=== PATIENT | female | born 1940 | race Caucasian/White ===

== ENCOUNTER 2020-02-08 17:34 | Inpatient (IN) ==
[2020-02-08] MEDS ORDERED: Ondansetron ODT 4 MG TAB.RAPDIS SL PRN (20:43)
[2020-02-08] MEDS ORDERED: Naloxone 0.4 MG/ML INJ IVP PRN (20:43)
[2020-02-08 21:52] LABS: Immature Granulocytes % 0.4 % (0-4); Mean Corpuscular Volume 87.4 fL (83.0-100.0); Red Cell Distribution Width 13.1 % (11.5-14.5)
[2020-02-08 21:54] LABS: Eosinophils % 0.4 %; Hematocrit 41.7 % (35.3-44.9); Hemoglobin 12.9 g/dL (11.5-15.4); Immature Platelets 4.8 % (1.1-6.1); Lymphocytes # 0.2 K/mcL (0.6-4.6); Lymphocytes % 7.7 %; Mean Corpuscular HGB Conc 30.9 g/dL (31.6-35.5); Mean Platelet Volume 11.5 fL (9.4-12.4); Monocytes # 0.1 K/mcL (0.0-1.3); Monocytes % 2.2 %; Neutrophils # 2.4 K/mcL (1.6-8.9); Platelet Count 109 K/mcL (140-400); Red Blood Count 4.77 M/mcL (3.82-4.97); Segmented Neutrophils % 89.3 %; White Blood Count 2.7 K/mcL (4.3-11.1)
[2020-02-08 22:15] LABS: Albumin 3.8 g/dL (3.5-5.7); Albumin/Globulin Ratio 1.2 (1.1-2.2); Bilirubin,Total 0.5 mg/dL (0.3-1.0); Calcium 8.4 mg/dL (8.6-10.3); Globulin 3.1 g/dL (2.4-3.5); Potassium 3.8 mEq/L (3.5-5.1); Total Protein 6.9 g/dL (6.4-8.9)
[2020-02-08] MEDS: Dexamethasone 4 MG/ML VIAL IVP SCH (23:51)
[2020-02-09 07:07] LABS: Hematocrit 43.2 % (35.3-44.9); Hemoglobin 13.4 g/dL (11.5-15.4); Immature Platelets 5.6 % (1.1-6.1); Mean Corpuscular Hemoglobin 27.1 pg (28.0-33.3); Mean Corpuscular Volume 87.3 fL (83.0-100.0); Mean Platelet Volume 11.3 fL (9.4-12.4); Red Blood Count 4.95 M/mcL (3.82-4.97); Red Cell Distribution Width 13.1 % (11.5-14.5); White Blood Count 2.5 K/mcL (4.3-11.1)
[2020-02-09 07:14] LABS: Prothrombin Time 11.9 Seconds (9.4-12.1)
[2020-02-09 07:30] LABS: Phosphorous 3.6 mg/dL (2.7-4.5)
[2020-02-09 07:39] LABS: Thyroid Stimulating Hormone 0.354 mcIU/mL (0.340-5.600)
[2020-02-09] MEDS ORDERED: Ipratropium/Albuterol Neb 3 ML IH SCH (08:00)
[2020-02-09] MEDS ORDERED: Famotidine 20 MG TABLET PO SCH (09:00)
[2020-02-09] MEDS: amLODIPine 5 MG TABLET PO SCH (09:01)
[2020-02-09] MEDS: Dexamethasone 4 MG/ML VIAL IVP SCH (09:01)
[2020-02-09] MEDS: Folic Acid 1 MG TABLET PO SCH (09:01)
[2020-02-09] MEDS: Azithromycin 500 MG in 0.9 % Sodium Chloride 250 ML IVPB SCH (09:02)
[2020-02-09] MEDS: Ipratropium 1 PUFF INHALER IH SCH ×4 (11:55→23:35)
[2020-02-09] MEDS: QUEtiapine Fumarate 25 MG TABLET PO SCH (21:46)
[2020-02-09] MEDS: Acetaminophen 325 MG TABLET PO PRN (21:46)
[2020-02-10] MEDS: Ipratropium 1 PUFF INHALER IH SCH ×6 (03:58→23:29)
[2020-02-10] MEDS: Budesonide/Formoterol 80/4.5 1 PUFF INH IH SCH ×2 (07:20→19:55)
[2020-02-10] MEDS ORDERED: NON-FORMULARY MEDICATION 1 EACH EACH (Umeclidinium Bromide [Incruse Ellipta] 1 PUFF) IH SCH (09:00)
[2020-02-10] MEDS: Azithromycin 500 MG in 0.9 % Sodium Chloride 250 ML IVPB SCH (10:30)
[2020-02-10] MEDS: Folic Acid 1 MG TABLET PO SCH (10:31)
[2020-02-10] MEDS: amLODIPine 5 MG TABLET PO SCH (10:31)
[2020-02-10] MEDS: Famotidine 20 MG TABLET PO SCH (10:31)
[2020-02-10] MEDS: Dexamethasone 4 MG/ML VIAL IVP SCH (10:31)
[2020-02-10 12:00] LABS: Basophils % 0.1 %; Immature Granulocytes % 0.3 % (0-4)
[2020-02-10 12:02] LABS: Hematocrit 44.8 % (35.3-44.9); Hemoglobin 14.2 g/dL (11.5-15.4); Immature Platelets 5.1 % (1.1-6.1); Lymphocytes # 0.4 K/mcL (0.6-4.6); Mean Corpuscular HGB Conc 31.7 g/dL (31.6-35.5); Mean Corpuscular Hemoglobin 27.7 pg (28.0-33.3); Mean Corpuscular Volume 87.3 fL (83.0-100.0); Mean Platelet Volume 11.3 fL (9.4-12.4); Monocytes # 0.5 K/mcL (0.0-1.3); Monocytes % 6.7 %; Neutrophils # 6.3 K/mcL (1.6-8.9); Platelet Count 133 K/mcL (140-400); Red Blood Count 5.13 M/mcL (3.82-4.97); Segmented Neutrophils % 87.9 %; White Blood Count 7.2 K/mcL (4.3-11.1)
[2020-02-10 12:16] LABS: Albumin 3.8 g/dL (3.5-5.7); Albumin/Globulin Ratio 1.2 (1.1-2.2); Bilirubin,Total 0.4 mg/dL (0.3-1.0); Calcium 8.9 mg/dL (8.6-10.3); Globulin 3.2 g/dL (2.4-3.5); Potassium 3.6 mEq/L (3.5-5.1)
[2020-02-10] MEDS: cefTRIAXone 1,000 MG in Water for inj. (sterile) 10 ML IVP SCH (16:20)
[2020-02-10] MEDS ORDERED: Furosemide 40 MG/4 ML VIAL IVP ONE ×2 (16:55→17:05)
[2020-02-10] MEDS ORDERED: Isovue-370 500 ML BOTTLE IVP ONE (16:56)
[2020-02-10] MEDS ORDERED: *HR* Heparin 5,000 UNIT/ML VIAL IVP PRN ×2 (17:06)
[2020-02-10] MEDS ORDERED: *HR* Heparin 5,000 UNIT/ML VIAL IVP ONE (17:06)
[2020-02-10 17:42] LABS: ABG Base Excess 2 mEq/L (-2 to 3); ABG HCO3 25 mEq/L (21-27); ABG Oxygen Saturation 86 % (95-98); ABG PCO2 34 mmHg (35-45); ABG PH 7.48 pH Units (7.32-7.45); ABG PO2 48 mmHg (85-104); ABG TCO2 26 mEq/L (20-26)
[2020-02-10] MEDS ORDERED: *HR* Heparin 5,000 UNIT/ML VIAL SQ SCH (18:00)
[2020-02-10 18:15] LABS: Mean Corpuscular HGB Conc 30.6 g/dL (31.6-35.5); Mean Corpuscular Hemoglobin 26.7 pg (28.0-33.3); Red Cell Distribution Width 13.1 % (11.5-14.5)
[2020-02-10 18:16] LABS: Hematocrit 45.1 % (35.3-44.9); Hemoglobin 13.8 g/dL (11.5-15.4); Immature Platelets 6.5 % (1.1-6.1); Mean Corpuscular Volume 87.2 fL (83.0-100.0); Mean Platelet Volume 11.3 fL (9.4-12.4); Red Blood Count 5.17 M/mcL (3.82-4.97); White Blood Count 6.1 K/mcL (4.3-11.1)
[2020-02-10] MEDS: Heparin 25,000UNIT/250ML 1/2NS 25,000 UNIT/250 ML IV.SOLN IVC SCH (18:17)
[2020-02-10 18:20] LABS: Prothrombin Time 11.7 Seconds (9.4-12.1)
[2020-02-10 18:22] LABS: Heparin anti-factor XA UFH 0.04 IU/mL (0.30-0.70)
[2020-02-10] MEDS: Acetaminophen 325 MG TABLET PO PRN (20:31)
[2020-02-10] MEDS: QUEtiapine Fumarate 25 MG TABLET PO SCH (20:31)
[2020-02-10] MEDS ORDERED: 0.9 % Sodium Chloride 250 ML ONE (22:58)
[2020-02-11 03:20] LABS: Basophils % 0.2 %; Hematocrit 37.8 % (35.3-44.9); Hemoglobin 11.8 g/dL (11.5-15.4); Immature Granulocytes % 0.3 % (0-4); Immature Platelets 6.9 % (1.1-6.1); Lymphocytes # 0.3 K/mcL (0.6-4.6); Lymphocytes % 4.3 %; Mean Corpuscular HGB Conc 31.2 g/dL (31.6-35.5); Mean Corpuscular Hemoglobin 26.9 pg (28.0-33.3); Mean Corpuscular Volume 86.1 fL (83.0-100.0); Mean Platelet Volume 11.5 fL (9.4-12.4); Monocytes # 0.4 K/mcL (0.0-1.3); Monocytes % 6.2 %; Neutrophils # 5.2 K/mcL (1.6-8.9); Platelet Count 113 K/mcL (140-400); Red Blood Count 4.39 M/mcL (3.82-4.97); White Blood Count 5.8 K/mcL (4.3-11.1)
[2020-02-11 03:34] LABS: Albumin 3.6 g/dL (3.5-5.7); Albumin/Globulin Ratio 1.2 (1.1-2.2); Bilirubin,Total 0.4 mg/dL (0.3-1.0); Calcium 8.5 mg/dL (8.6-10.3); Globulin 2.9 g/dL (2.4-3.5); Potassium 3.5 mEq/L (3.5-5.1); Total Protein 6.5 g/dL (6.4-8.9)
[2020-02-11] MEDS: Ipratropium 1 PUFF INHALER IH SCH ×6 (03:56→23:57)
[2020-02-11] MEDS: Budesonide/Formoterol 80/4.5 1 PUFF INH IH SCH ×2 (08:05→20:20)
[2020-02-11] MEDS: Folic Acid 1 MG TABLET PO SCH (10:18)
[2020-02-11] MEDS: amLODIPine 5 MG TABLET PO SCH (10:18)
[2020-02-11] MEDS: Dexamethasone 4 MG/ML VIAL IVP SCH (10:18)
[2020-02-11] MEDS: Famotidine 20 MG TABLET PO SCH (10:18)
[2020-02-11] MEDS: cefTRIAXone 1,000 MG in Water for inj. (sterile) 10 ML IVP SCH (10:19)
[2020-02-11] MEDS: Pantoprazole 40 MG VIAL IVP SCH (10:21)
[2020-02-11] MEDS: Heparin 25,000UNIT/250ML 1/2NS 25,000 UNIT/250 ML IV.SOLN IVC SCH (17:39)
[2020-02-11] MEDS: QUEtiapine Fumarate 25 MG TABLET PO SCH (19:57)
[2020-02-12] MEDS: Ipratropium 1 PUFF INHALER IH SCH ×6 (04:03→23:12)
[2020-02-12 05:17] LABS: Basophils % 0.2 %; INR 1.1; Prothrombin Time 12.2 Seconds (9.4-12.1)
[2020-02-12 05:18] LABS: Heparin anti-factor XA UFH 0.63 IU/mL (0.30-0.70)
[2020-02-12 05:19] LABS: Hematocrit 37.9 % (35.3-44.9); Immature Granulocytes % 1.4 % (0-4); Immature Platelets 7.2 % (1.1-6.1); Lymphocytes # 0.3 K/mcL (0.6-4.6); Lymphocytes % 5.5 %; Mean Corpuscular HGB Conc 31.7 g/dL (31.6-35.5); Mean Corpuscular Hemoglobin 27.2 pg (28.0-33.3); Mean Corpuscular Volume 85.9 fL (83.0-100.0); Mean Platelet Volume 11.9 fL (9.4-12.4); Monocytes # 0.4 K/mcL (0.0-1.3); Monocytes % 6.8 %; Neutrophils # 4.8 K/mcL (1.6-8.9); Platelet Count 124 K/mcL (140-400); Red Blood Count 4.41 M/mcL (3.82-4.97); Red Cell Distribution Width 13.1 % (11.5-14.5); Segmented Neutrophils % 86.1 %; White Blood Count 5.6 K/mcL (4.3-11.1)
[2020-02-12 05:34] LABS: Alanine Aminotransferase 9 Units/L (7-52); Albumin 3.5 g/dL (3.5-5.7); Albumin/Globulin Ratio 1.2 (1.1-2.2); Alkaline Phosphatase 54 Units/L (34-104); Aspartate Amino Transferase 19 Units/L (13-39); BUN/Creatinine Ratio 30 (6-26); Bilirubin,Total 0.4 mg/dL (0.3-1.0); Blood Urea Nitrogen 31 mg/dL (8-23); Calcium 8.5 mg/dL (8.6-10.3); Carbon Dioxide 24 mEq/L (23-29); Chloride 104 mEq/L (98-107); Glucose 106 mg/dL (70-105); Osmolality,Calculated 297 (280-300); Potassium 3.5 mEq/L (3.5-5.1); Sodium 140 mEq/L (136-145); Total Protein 6.5 g/dL (6.4-8.9); eGFR For African Americans > 60 (> 60); eGFR For Non-African Americans 51 (> 60)
[2020-02-12] MEDS: Budesonide/Formoterol 80/4.5 1 PUFF INH IH SCH ×2 (07:32→20:14)
[2020-02-12] MEDS: Pantoprazole 40 MG VIAL IVP SCH (09:05)
[2020-02-12] MEDS: Dexamethasone 4 MG/ML VIAL IVP SCH (09:06)
[2020-02-12] MEDS: Famotidine 20 MG TABLET PO SCH (09:08)
[2020-02-12] MEDS: Folic Acid 1 MG TABLET PO SCH (09:08)
[2020-02-12] MEDS: cefTRIAXone 1,000 MG in Water for inj. (sterile) 10 ML IVP SCH (09:08)
[2020-02-12] MEDS: amLODIPine 5 MG TABLET PO SCH (09:08)
[2020-02-12] MEDS: Furosemide 20 MG/2 ML VIAL IVP SCH (09:14)
[2020-02-12] MEDS ORDERED: Heparin 25,000UNIT/250ML 1/2NS 25,000 UNIT/250 ML IV.SOLN IVC SCH (14:49)
[2020-02-12] MEDS ORDERED: *HR* Heparin 5,000 UNIT/ML VIAL IVP PRN ×2 (14:49)
[2020-02-12] MEDS ORDERED: Dexamethasone Sodium Phos/PF 10 MG/ML VIAL IVP ONE (15:03)
[2020-02-12] MEDS: *HR* Enoxaparin 60 MG/0.6 ML SYRINGE SQ SCH (16:55)
[2020-02-12] MEDS: QUEtiapine Fumarate 25 MG TABLET PO SCH (21:56)
[2020-02-13] MEDS: Ipratropium 1 PUFF INHALER IH SCH ×5 (03:45→19:58)
[2020-02-13 05:21] LABS: Heparin anti-factor XA UFH 0.44 IU/mL (0.30-0.70); INR 1.1; Prothrombin Time 12.9 Seconds (9.4-12.1)
[2020-02-13 05:37] LABS: Albumin 3.4 g/dL (3.5-5.7); Albumin/Globulin Ratio 1.2 (1.1-2.2); Bilirubin,Total 0.4 mg/dL (0.3-1.0); Calcium 8.5 mg/dL (8.6-10.3); Globulin 2.8 g/dL (2.4-3.5); Potassium 3.3 mEq/L (3.5-5.1); Total Protein 6.2 g/dL (6.4-8.9)
[2020-02-13] MEDS: *HR* Enoxaparin 60 MG/0.6 ML SYRINGE SQ SCH (05:54)
[2020-02-13] MEDS: Furosemide 20 MG/2 ML VIAL IVP SCH (07:56)
[2020-02-13] MEDS: amLODIPine 5 MG TABLET PO SCH (07:56)
[2020-02-13] MEDS: Folic Acid 1 MG TABLET PO SCH (07:56)
[2020-02-13] MEDS: Famotidine 20 MG TABLET PO SCH (07:56)
[2020-02-13] MEDS: cefTRIAXone 1,000 MG in Water for inj. (sterile) 10 ML IVP SCH (07:57)
[2020-02-13] MEDS: Pantoprazole 40 MG VIAL IVP SCH (07:57)
[2020-02-13] MEDS: Dexamethasone Sodium Phos/PF 10 MG/ML VIAL IVP SCH (07:57)
[2020-02-13] MEDS: Budesonide/Formoterol 80/4.5 1 PUFF INH IH SCH ×2 (08:05→19:59)
[2020-02-13] MEDS: QUEtiapine Fumarate 25 MG TABLET PO SCH (20:06)
[2020-02-13] MEDS: Acetaminophen 325 MG TABLET PO PRN (20:06)
[2020-02-14] MEDS: Ipratropium 1 PUFF INHALER IH SCH ×6 (00:33→19:44)
[2020-02-14] MEDS: *HR* Enoxaparin 30 MG/0.3 ML SYRINGE SQ SCH (04:52)
[2020-02-14 07:22] LABS: INR 1.3
[2020-02-14 07:30] LABS: Alanine Aminotransferase 8 Units/L (7-52); Albumin 3.4 g/dL (3.5-5.7); Albumin/Globulin Ratio 1.2 (1.1-2.2); Alkaline Phosphatase 51 Units/L (34-104); Aspartate Amino Transferase 13 Units/L (13-39); BUN/Creatinine Ratio 36 (6-26); Bilirubin,Total 0.5 mg/dL (0.3-1.0); Blood Urea Nitrogen 38 mg/dL (8-23); Calcium 8.6 mg/dL (8.6-10.3); Carbon Dioxide 26 mEq/L (23-29); Chloride 102 mEq/L (98-107); Globulin 2.9 g/dL (2.4-3.5); Glucose 144 mg/dL (70-105); Osmolality,Calculated 300 (280-300); Potassium 3.7 mEq/L (3.5-5.1); Sodium 139 mEq/L (136-145); Total Protein 6.3 g/dL (6.4-8.9); eGFR For African Americans > 60 (> 60); eGFR For Non-African Americans 50 (> 60)
[2020-02-14] MEDS: Budesonide/Formoterol 80/4.5 1 PUFF INH IH SCH ×2 (07:40→19:42)
[2020-02-14] MEDS: Furosemide 20 MG/2 ML VIAL IVP SCH (10:43)
[2020-02-14] MEDS: cefTRIAXone 1,000 MG in Water for inj. (sterile) 10 ML IVP SCH (10:43)
[2020-02-14] MEDS: amLODIPine 5 MG TABLET PO SCH (10:44)
[2020-02-14] MEDS: Famotidine 20 MG TABLET PO SCH (10:44)
[2020-02-14] MEDS: Dexamethasone Sodium Phos/PF 10 MG/ML VIAL IVP SCH (10:44)
[2020-02-14] MEDS: Folic Acid 1 MG TABLET PO SCH (10:45)
[2020-02-14] MEDS: Pantoprazole 40 MG VIAL IVP SCH (10:45)
[2020-02-14 17:46] LABS: Hematocrit 38.1 % (35.3-44.9); Hemoglobin 12.3 g/dL (11.5-15.4); Mean Corpuscular HGB Conc 32.3 g/dL (31.6-35.5); Mean Corpuscular Hemoglobin 27.2 pg (28.0-33.3); Mean Corpuscular Volume 84.3 fL (83.0-100.0); Mean Platelet Volume 10.9 fL (9.4-12.4); Platelet Count 205 K/mcL (140-400); Red Blood Count 4.52 M/mcL (3.82-4.97); Red Cell Distribution Width 13.1 % (11.5-14.5); White Blood Count 8.4 K/mcL (4.3-11.1)
[2020-02-14 18:01] LABS: Lymphocytes # 0.3 K/mcL (0.6-4.6); Monocytes # 0.3 K/mcL (0.0-1.3); Neutrophils # 7.7 K/mcL (1.6-8.9); Platelet Estimate Normal (Normal)
[2020-02-14] MEDS: QUEtiapine Fumarate 25 MG TABLET PO SCH (19:55)
[2020-02-14] MEDS: Acetaminophen 325 MG TABLET PO PRN (21:17)
[2020-02-15] MEDS: Ipratropium 1 PUFF INHALER IH SCH ×7 (00:59→23:56)
[2020-02-15] MEDS: *HR* Enoxaparin 30 MG/0.3 ML SYRINGE SQ SCH (05:10)
[2020-02-15 05:55] LABS: Basophils % 0.8 %; Hematocrit 39.6 % (35.3-44.9); Hemoglobin 12.7 g/dL (11.5-15.4); Immature Granulocytes % 5.3 % (0-4); Lymphocytes # 0.3 K/mcL (0.6-4.6); Lymphocytes % 5.3 %; Mean Corpuscular HGB Conc 32.1 g/dL (31.6-35.5); Mean Corpuscular Hemoglobin 27.2 pg (28.0-33.3); Mean Corpuscular Volume 84.8 fL (83.0-100.0); Mean Platelet Volume 11.7 fL (9.4-12.4); Monocytes # 0.2 K/mcL (0.0-1.3); Monocytes % 4.1 %; Platelet Count 200 K/mcL (140-400); Red Blood Count 4.67 M/mcL (3.82-4.97); Segmented Neutrophils % 84.5 %; White Blood Count 4.9 K/mcL (4.3-11.1)
[2020-02-15 06:00] LABS: Neutrophils # 4.1 K/mcL (1.6-8.9)
[2020-02-15 06:01] LABS: INR 1.2; Prothrombin Time 13.6 Seconds (9.4-12.1)
[2020-02-15 06:15] LABS: Albumin 3.8 g/dL (3.5-5.7); Albumin/Globulin Ratio 1.3 (1.1-2.2); Bilirubin,Total 0.5 mg/dL (0.3-1.0); Calcium 9.1 mg/dL (8.6-10.3); Potassium 4.3 mEq/L (3.5-5.1); Total Protein 6.8 g/dL (6.4-8.9)
[2020-02-15 06:35] LABS: Platelet Estimate Normal (Normal)
[2020-02-15] MEDS: Budesonide/Formoterol 80/4.5 1 PUFF INH IH SCH ×2 (08:48→19:45)
[2020-02-15] MEDS: cefTRIAXone 1,000 MG in Water for inj. (sterile) 10 ML IVP SCH (09:51)
[2020-02-15] MEDS: Furosemide 20 MG/2 ML VIAL IVP SCH (09:53)
[2020-02-15] MEDS: amLODIPine 5 MG TABLET PO SCH (09:53)
[2020-02-15] MEDS: Folic Acid 1 MG TABLET PO SCH (09:53)
[2020-02-15] MEDS: Dexamethasone Sodium Phos/PF 10 MG/ML VIAL IVP SCH (09:54)
[2020-02-15] MEDS: QUEtiapine Fumarate 25 MG TABLET PO SCH (20:37)
[2020-02-16 02:40] LABS: Albumin 3.4 g/dL (3.5-5.7); Albumin/Globulin Ratio 1.2 (1.1-2.2); Bilirubin,Total 0.4 mg/dL (0.3-1.0); Calcium 8.8 mg/dL (8.6-10.3); Globulin 2.8 g/dL (2.4-3.5); Potassium 4.4 mEq/L (3.5-5.1); Total Protein 6.2 g/dL (6.4-8.9)
[2020-02-16] MEDS: Ipratropium 1 PUFF INHALER IH SCH ×6 (03:28→23:15)
[2020-02-16] MEDS: *HR* Enoxaparin 30 MG/0.3 ML SYRINGE SQ SCH (05:22)
[2020-02-16 08:16] LABS: INR 1.1; Prothrombin Time 13.2 Seconds (9.4-12.1)
[2020-02-16] MEDS: Budesonide/Formoterol 80/4.5 1 PUFF INH IH SCH ×2 (08:55→19:54)
[2020-02-16] MEDS: amLODIPine 5 MG TABLET PO SCH (09:38)
[2020-02-16] MEDS: Folic Acid 1 MG TABLET PO SCH (09:38)
[2020-02-16] MEDS: Furosemide 20 MG/2 ML VIAL IVP SCH (10:24)
[2020-02-16] MEDS: Dexamethasone Sodium Phos/PF 10 MG/ML VIAL IVP SCH (10:25)
[2020-02-16] MEDS: QUEtiapine Fumarate 25 MG TABLET PO SCH (20:23)
[2020-02-17] MEDS: Ipratropium 1 PUFF INHALER IH SCH ×6 (03:28→23:25)
[2020-02-17] MEDS: *HR* Enoxaparin 30 MG/0.3 ML SYRINGE SQ SCH (05:35)
[2020-02-17] MEDS: Budesonide/Formoterol 80/4.5 1 PUFF INH IH SCH ×2 (07:35→19:52)
[2020-02-17] MEDS: Folic Acid 1 MG TABLET PO SCH (07:42)
[2020-02-17] MEDS: amLODIPine 5 MG TABLET PO SCH (07:42)
[2020-02-17] MEDS: Dexamethasone 4 MG/ML VIAL IVP SCH (07:43)
[2020-02-17] MEDS: QUEtiapine Fumarate 25 MG TABLET PO SCH (20:17)
[2020-02-18] MEDS: Ipratropium 1 PUFF INHALER IH SCH ×4 (03:30→15:35)
[2020-02-18 04:16] VITALS: BP 126/65
[2020-02-18] MEDS: *HR* Enoxaparin 30 MG/0.3 ML SYRINGE SQ SCH (05:26)
[2020-02-18] MEDS: Budesonide/Formoterol 80/4.5 1 PUFF INH IH SCH (07:37)
[2020-02-18] MEDS: Dexamethasone 4 MG/ML VIAL IVP SCH (10:50)
[2020-02-18] MEDS: amLODIPine 5 MG TABLET PO SCH (10:50)
[2020-02-18] MEDS: Folic Acid 1 MG TABLET PO SCH (10:51)
== END 2020-02-18 17:45 | DRG 177 ==
LOC: 2NENU → SUATTDRO 20:25 → 2NENU 02-14 06:29
PROVIDERS: ADMIT Student in an Organized Health Care Education/Training Program; ATTEND Internal Medicine

== ENCOUNTER 2020-03-02 19:59 | Inpatient (IN) ==
[2020-03-03] MEDS ORDERED: Acetaminophen 325 MG TABLET PO PRN (01:04)
[2020-03-03] MEDS ORDERED: Naloxone 0.4 MG/ML INJ IVP PRN (01:04)
[2020-03-03] MEDS ORDERED: Ondansetron 4 MG/2 ML VIAL IVP PRN (01:04)
[2020-03-03 06:58] LABS: INR 1.1; Prothrombin Time 13.1 Seconds (9.4-12.1)
[2020-03-03 06:59] LABS: Activated Partial Thrombo Time 29.3 Seconds (26.0-36.0)
[2020-03-03 07:14] LABS: C-Reactive Protein 24 mg/L (Less than 10); Creatine Kinase 18 Units/L (30-223); Lactate Dehydrogenase 179 Units/L (140-271)
[2020-03-03 07:18] LABS: Albumin 3.4 g/dL (3.5-5.7); Bilirubin,Total 0.4 mg/dL (0.3-1.0); Calcium 9.2 mg/dL (8.6-10.3); Globulin 3.5 g/dL (2.4-3.5); Magnesium 2.3 mg/dL (1.6-2.6); Phosphorous 5.7 mg/dL (2.7-4.5); Total Protein 6.9 g/dL (6.4-8.9); Troponin I 0.03 ng/mL (< 0.04)
[2020-03-03] MEDS ORDERED: Vancomycin 1 EACH in 0.9 % Sodium Chloride 250 ML IVPB PRN (08:00)
[2020-03-03] MEDS: Piperacillin/Tazobactam 3.375 GM in 0.9 % Sodium Chloride Mini Bag 100 ML IVPB SCH ×2 (08:17→19:36)
[2020-03-03] MEDS ORDERED: Dexamethasone 4 MG/ML VIAL IVP SCH (09:00)
[2020-03-03 13:29] LABS: Basophils % 0.2 %; Hematocrit 32.9 % (35.3-44.9); Hemoglobin 10.2 g/dL (11.5-15.4); Immature Granulocytes % 1.1 % (0-4); Lymphocytes # 0.3 K/mcL (0.6-4.6); Lymphocytes % 6.3 %; Mean Corpuscular Hemoglobin 27.1 pg (28.0-33.3); Mean Corpuscular Volume 87.5 fL (83.0-100.0); Mean Platelet Volume 10.7 fL (9.4-12.4); Monocytes # 0.1 K/mcL (0.0-1.3); Monocytes % 1.5 %; Neutrophils # 4.8 K/mcL (1.6-8.9); Platelet Count 207 K/mcL (140-400); Red Blood Count 3.76 M/mcL (3.82-4.97); Red Cell Distribution Width 14.2 % (11.5-14.5); Segmented Neutrophils % 90.9 %
[2020-03-03 13:44] LABS: White Blood Count 5.3 K/mcL (4.3-11.1)
[2020-03-03] MEDS: *HR* Heparin 5,000 UNIT/ML VIAL SQ SCH (19:39)
[2020-03-04] MEDS: *HR* Heparin 5,000 UNIT/ML VIAL SQ SCH ×2 (05:45→16:33)
[2020-03-04 06:30] LABS: Hematocrit 37.4 % (35.3-44.9); Hemoglobin 11.3 g/dL (11.5-15.4); Mean Corpuscular HGB Conc 30.2 g/dL (31.6-35.5); Mean Corpuscular Volume 89.5 fL (83.0-100.0); Mean Platelet Volume 10.8 fL (9.4-12.4); Platelet Count 275 K/mcL (140-400); Red Blood Count 4.18 M/mcL (3.82-4.97); Red Cell Distribution Width 14.3 % (11.5-14.5); White Blood Count 9.5 K/mcL (4.3-11.1)
[2020-03-04 06:55] LABS: Calcium 9.7 mg/dL (8.6-10.3); Magnesium 2.2 mg/dL (1.6-2.6); Potassium 4.5 mEq/L (3.5-5.1)
[2020-03-04] MEDS: Piperacillin/Tazobactam 3.375 GM in 0.9 % Sodium Chloride Mini Bag 100 ML IVPB SCH ×2 (07:52→16:33)
[2020-03-04] MEDS ORDERED: NON-FORMULARY MEDICATION 1 EACH EACH (Umeclidinium Bromide [Incruse Ellipta] 1 PUFF) IH SCH (09:00)
[2020-03-04] MEDS: amLODIPine 5 MG TABLET PO SCH (10:02)
[2020-03-04] MEDS: Lactobacillus 1 EACH CAP.SPRINK PO SCH ×2 (10:02→21:39)
[2020-03-04] MEDS: Famotidine 20 MG TABLET PO SCH (10:02)
[2020-03-04] MEDS: Ipratropium 1 PUFF INHALER IH SCH ×4 (11:53→23:33)
[2020-03-04 16:40] LABS: Adenovirus Not Detected (Not Detect); Bordetella Pertussis Not Detected (Not Detect); Chlamydophila pneumoniae Not Detected (Not Detect); Coronavirus 229E Not Detected (Not Detect); Coronavirus HKU1 Not Detected (Not Detect); Coronavirus NL63 Not Detected (Not Detect); Coronavirus OC43 Not Detected (Not Detect); Human Metapneumovirus Not Detected (Not Detect); Human Rhinovirus/Enterovirus Not Detected (Not Detect); Influenza A Subtype 2009 H1 Not Detected (Not Detect); Influenza B Not Detected (Not Detect); Mycoplasma pneumoniae Not Detected (Not Detect); Parainfluenza Virus 1 Not Detected (Not Detect); Parainfluenza Virus 2 Not Detected (Not Detect); Parainfluenza Virus 3 Not Detected (Not Detect); Parainfluenza Virus 4 Not Detected (Not Detect); Respiratory Syncytial Virus Not Detected (Not Detect); SARS-CoV-2 Not Detected (Not Detect)
[2020-03-04] MEDS ORDERED: QUEtiapine Fumarate 25 MG TABLET PO SCH (21:00)
[2020-03-05] MEDS: Piperacillin/Tazobactam 3.375 GM in 0.9 % Sodium Chloride Mini Bag 100 ML IVPB SCH ×2 (00:26→07:51)
[2020-03-05 02:51] LABS: Fibrinogen 421 mg/dL (169-393)
[2020-03-05 02:52] LABS: D-Dimer 2540 ng/mLFEU (0-500)
[2020-03-05 03:11] LABS: Calcium 8.9 mg/dL (8.6-10.3); Potassium 4.3 mEq/L (3.5-5.1)
[2020-03-05] MEDS: Ipratropium 1 PUFF INHALER IH SCH ×4 (04:05→16:19)
[2020-03-05] MEDS: *HR* Heparin 5,000 UNIT/ML VIAL SQ SCH (05:59)
[2020-03-05 07:48] LABS: Basophils % 0.4 %; Eosinophils % 0.4 %; Hemoglobin 10.1 g/dL (11.5-15.4); Immature Granulocytes % 2.2 % (0-4); Lymphocytes # 0.8 K/mcL (0.6-4.6); Lymphocytes % 16.4 %; Mean Corpuscular HGB Conc 31.6 g/dL (31.6-35.5); Mean Corpuscular Hemoglobin 28.2 pg (28.0-33.3); Mean Corpuscular Volume 89.4 fL (83.0-100.0); Mean Platelet Volume 10.6 fL (9.4-12.4); Monocytes # 0.5 K/mcL (0.0-1.3); Monocytes % 10.6 %; Platelet Count 244 K/mcL (140-400); Red Blood Count 3.58 M/mcL (3.82-4.97); Red Cell Distribution Width 14.6 % (11.5-14.5)
[2020-03-05 07:50] LABS: Neutrophils # 3.2 K/mcL (1.6-8.9); White Blood Count 4.6 K/mcL (4.3-11.1)
[2020-03-05] MEDS: Famotidine 20 MG TABLET PO SCH (07:50)
[2020-03-05] MEDS: Lactobacillus 1 EACH CAP.SPRINK PO SCH (07:52)
[2020-03-05] MEDS: amLODIPine 5 MG TABLET PO SCH (07:53)
[2020-03-05 15:33] VITALS: BP 100/58
== END 2020-03-05 18:05 | DRG 177 ==
LOC: SUATTDRO 21:56 → CDU 21:56
PROVIDERS: ADMIT Family Medicine; ATTEND Pharmacist